=== PATIENT | female | born 1950 | race Caucasian/White ===

== ENCOUNTER 2018-06-12 04:55 | Day surgery (SDC) | payer MEDICARE, BC ==
[~2018-06-12] VITALS: Ht 177.8 cm; Wt 109.1 kg
[2018-06-12] MEDS ORDERED: ONDANSETRON HCL 4 MG/2 ML VIAL IVP ONE (04:56)
[2018-06-12] MEDS ORDERED: MIDAZOLAM HCL 2 MG/2 ML VIAL IVP ONE (04:56)
[2018-06-12] MEDS ORDERED: SUCCINYLCHOLINE CHLORIDE 20 MG/ML 10 ML VIAL IVP ONE (04:56)
[2018-06-12] MEDS ORDERED: PROPOFOL 1% 20 ML VIAL IVP ONE (04:56)
[2018-06-12] MEDS ORDERED: FentaNYL CITRATE-PF 100 MCG/2 ML VIAL IVP ONE (04:56)
[2018-06-12] MEDS ORDERED: LIDOCAINE/PF 2% 5 ML VIAL IM ONE (04:56)
[2018-06-12] MEDS ORDERED: RINGERS SOLUTION,LACTATED 0 ML IV ONE (05:02)
[2018-06-12] MEDS ORDERED: RINGERS SOLUTION,LACTATED 1,000 ML IV ONE ×2 (05:30→06:54)
[2018-06-12] MEDS ORDERED: CeFAZolin 1 GM/DEXTROSE 50 ML IV ONE (06:00)
[2018-06-12 06:02] LABS: BASOPHILS % (AUTO) 0.8 % (0.0-2.0); EOSINOPHILS % (AUTO) 2.1 % (1.0-6.0); HEMATOCRIT 41.6 % (36-46); HEMOGLOBIN 14.3 g/dL (12.0-16.0); LYMPHOCYTES # (AUTO) 1.7 K/uL (1.0-4.8); MEAN CORPUSCULAR HEMOGLOBIN 34.3 pg (26.0-34.0); MEAN CORPUSCULAR HGB CONC 34.2 G/dL (31.0-37.0); MEAN CORPUSCULAR VOLUME 100 fL (80-100); MONOCYTES # (AUTO) 0.5 K/uL (0.1-1.0); MONOCYTES % (AUTO) 7.8 % (2.0-9.0); NEUTROPHILS # (AUTO) 4.5 K/uL (1.8-7.7); NEUTROPHILS % (AUTO) 64.3 % (40.0-70.0); PLATELET COUNT (AUTO) 232 K/uL (150-450); RED BLOOD CELL COUNT(AUTO) 4.15 MIL/uL (4.00-5.20); RED CELL DISTRIBUTION WIDTH 13.7 % (11.5-14.5)
[2018-06-12] MEDS ORDERED: LEVO150 PO (06:11)
[2018-06-12] MEDS ORDERED: ALPR0.5T8 PO (06:11)
[2018-06-12] MEDS ORDERED: ACET1TAB15 PO (06:11)
[2018-06-12] MEDS ORDERED: LISI-662 PO (06:11)
[2018-06-12 06:50] LABS: ANION GAP 7 mmol/L (8-16); CALCIUM, TOTAL 9.5 mg/dL (8.8-10.5); CARBON DIOXIDE 32 mmol/L (22-29); CHLORIDE 102 mmol/L (98-107); CREATININE 0.72 mg/dL (0.60-1.30); GLOMERULAR FILTR. RATE CALC > 60 mL/min (>60); GLUCOSE,RANDOM 117 mg/dL (70-110); POTASSIUM 4.5 mmol/L (3.5-5.1); SODIUM SERUM 141 mmol/L (136-145); UREA NITROGEN, BLOOD 13 mg/dL (7-18)
[2018-06-12] MEDS ORDERED: SODIUM CHLORIDE 0.9% 0 ML ONE (06:53)
[2018-06-12] MEDS ORDERED: VANCOMYCIN HCL 1 GM/VIAL ONE ×2 (06:53→07:05)
[2018-06-12] MEDS ORDERED: MUPIROCIN CALCIUM 2% 22 GM OINTMENT ONE (06:53)
[2018-06-12] MEDS ORDERED: IOHEXOL 240 MG/ML 20 ML VIAL ONE (06:53)
[2018-06-12] MEDS ORDERED: GUM MASTIC/STORAX/MSAL/ALCOHOL LIQUID 0.67 ML VIAL TP ONE (06:53)
[2018-06-12] MEDS ORDERED: BUPIVACAINE HCL/PF 0.5% 30 ML VIAL ONE (06:54)
[2018-06-12] MEDS ORDERED: MICROFIBRILLAR COLLAGEN 1 GM PACKAGE TP ONE (06:54)
[2018-06-12] MEDS ORDERED: SODIUM CHLORIDE 0.9% 100 ML ONE (07:05)
[2018-06-12] MEDS ORDERED: SODIUM CL IRRIG SOLN BAG 0 ML IRRIG ONE (07:08)
[2018-06-12] MEDS: BUPIVACAINE LIPOSOME/PF 1.3%-13.3MG/ML SUSPENSION 20 ML VIAL INJ ONE ×2 (07:30→08:31)
[2018-06-12] MEDS ORDERED: NEOMYCIN/BACITRACIN/POLYMYXIN B OINTMENT PACKET TP ONE (08:13)
[2018-06-12] MEDS: HYDROmorphone 2 MG/ML SYRINGE IVP PRN ×5 (08:15→08:35)
[2018-06-12] MEDS ORDERED: HYDROmorphone 2 MG/ML SYRINGE ONE (08:33)
[2018-06-12] MEDS ORDERED: HYDROmorphone 2 MG/ML SYRINGE IVP PRN (08:45)
[2018-06-13] MEDS ORDERED: SULF1TAB42 PO (05:58)
== END 2018-06-12 10:30 | disposition home or self-care (01) ==
LOC: SURGERY 04:55
PROVIDERS: ATTEND Orthopaedic Surgery
DX: D36.13 Benign neoplasm of peripheral nerves and autonomic nervous system of lower limb, including hip (principal); E03.9 Hypothyroidism, unspecified; I10 Essential (primary) hypertension; Z88.0 Allergy status to penicillin; Z79.899 Other long term (current) drug therapy; Z90.49 Acquired absence of other specified parts of digestive tract; Z90.710 Acquired absence of both cervix and uterus; Z96.643 Presence of artificial hip joint, bilateral; Z98.890 Other specified postprocedural states
CPT/HCPCS: 36415; 64784; 80048; 85025; 88304; 93005; C9290; J0330; J1170; J2250; J2405; J2704; J3010; J3370; J3490; J7050; J7120; Q9966

== ENCOUNTER 2018-06-13 05:50 | Emergency (ER) | payer MEDICARE, BC ==
[~2018-06-13] VITALS: Ht 177.8 cm; Wt 109.1 kg
[~2018-06-13 05:50] MED LIST: ACET1TAB15 PO; ALPR0.5T8 PO; LEVO150 PO; LISI-662 PO
[2018-06-13] MEDS ORDERED: SULF1TAB42 PO (05:58)
[2018-06-13 06:40] VITALS: BP 116/85
== END 2018-06-13 06:53 | disposition home or self-care (01) ==
LOC: EMS 05:50
DX: Z48.01 Encounter for change or removal of surgical wound dressing (principal); I10 Essential (primary) hypertension; E03.9 Hypothyroidism, unspecified; Z88.0 Allergy status to penicillin; Z79.899 Other long term (current) drug therapy; Z90.49 Acquired absence of other specified parts of digestive tract; Z90.710 Acquired absence of both cervix and uterus